=== PATIENT | male | born 1955 | race Asian ===

== ENCOUNTER 2020-05-29 15:25 | Emergency (ER) | payer OTHER ==
[~2020-05-29] VITALS: Ht 167.6 cm; Wt 77.1 kg
[2020-05-29] MEDS ORDERED: LIDOCAINE 2% (LOCAL ANESTH.) PF 5ml SDV ONE (15:48)
[2020-05-29] MEDS ORDERED: NEOMYCIN-BACITRACIN-POLYM 15GM TOP OINT TOP ONE (15:49)
[2020-05-29] MEDS ORDERED: cefTRIAXone SOD 1,000 MG VL ONE (15:49)
[2020-05-29] MEDS ORDERED: TETANUS-DIPTH-ACEL PERTUSSIS 0.5ML SYR Tdap IM ONE (16:00)
[2020-05-29] MEDS ORDERED: cefTRIAXone W LIDOCAINE 1 GM IM IM ONE (16:00)
[2020-05-29 16:05] VITALS: BP 136/88
== END 2020-05-29 16:50 | disposition home or self-care (01) ==
LOC: ER 15:25
DX: S62.525B Nondisplaced fracture of distal phalanx of left thumb, initial encounter for open fracture (principal); W26.9XXA Contact with unspecified sharp object(s), initial encounter; Y93.89 Activity, other specified; Y92.89 Other specified places as the place of occurrence of the external cause; Y99.8 Other external cause status
CPT/HCPCS: 11760; 73120; 90471; 90715; 96372; 99285; J0696; J2001; 12002